=== PATIENT | male | born 1975 | race Two or more races ===

== ENCOUNTER 2019-09-20 14:37 | Emergency (ER) | payer OTHER ==
[~2019-09-20] VITALS: Ht 162.6 cm; Wt 81.6 kg
--- NOTE | 2019-09-20 14:54 | NUR ---
Pt biblapd, medical clearance prior booking, c/o left foot pain since this morning. Pt aaox4, vss, breathing even and unlabored on room air w/ nad noted. Pt connected to the monitor.
--- NOTE | 2019-09-20 14:58 | NUR ---
XRAY AT BEDSIDE
[2019-09-20] MEDS ORDERED: IBUPROFEN 600 MG TABLET PO ONE ×2 (15:47→16:00)
[2019-09-20 15:53] VITALS: BP 120/76
--- NOTE | 2019-09-20 15:53 | NUR ---
Patient discharged to home in stable condition. Written and verbal after care instructions given. Patient verbalizes understanding of instruction.
== END 2019-09-20 15:54 ==
LOC: ER 14:42
DX: S90.32XA Contusion of left foot, initial encounter (principal); W18.39XA Other fall on same level, initial encounter; Y93.01 Activity, walking, marching and hiking; Y92.89 Other specified places as the place of occurrence of the external cause; Y99.8 Other external cause status
CPT/HCPCS: 73630-TC